=== PATIENT | female | born 1995 | race American Indian/Alaskan Native ===

== ENCOUNTER 2017-09-07 15:43 | Emergency (ER) | payer MEDICAID ==
[2017-09-07 16:51] LABS: Bilirubin,Urine NEG (Negative); Blood,Urine NEG (Negative); Color,Urine Yellow (Yellow); Mucus,Urine 3+ /HPF
[2017-09-07 16:57] LABS: HCG Qualitative,Urine Negative (Negative)
[2017-09-07 20:55] LABS: Basophils % (Auto) 0.5 % (0.0-1.8); Eosinophils # (Auto) 0.1 K/mm3 (0.0-0.4); Eosinophils % (Auto) 0.9 % (0.0-4.3); Hematocrit 37.4 % (30.3-42.9); Hemoglobin 12.3 gm/dl (10.1-14.3); Lymphocytes # (Auto) 2.6 K/mm3 (1.2-5.4); Lymphocytes % (Auto) 43.5 % (13.4-35.0); Mean Corpuscular HGB Conc 33 % (30-34); Mean Corpuscular Hemoglobin 26 pg (28-32); Mean Corpuscular Volume 80 fl (79-97); Monocytes # (Auto) 0.5 K/mm3 (0.0-0.8); Platelet Count 310 K/mm3 (140-440); Red Blood Count 4.68 M/mm3 (3.65-5.03); Red Cell Distribution Width 14.3 % (13.2-15.2)
[2017-09-07 21:16] LABS: Alanine Aminotransferase 11 units/L (7-56); Albumin 4.1 g/dL (3.9-5); BUN/Creatinine Ratio 25; Blood Urea Nitrogen 15 mg/dL (7-17); Calcium 9.6 mg/dL (8.4-10.2); Hemolysis Index 8
[2017-09-07 21:31] VITALS: BP 105/55
[2017-09-07] MEDS ORDERED: ZITHROMAX PO ONE (22:00)
[2017-09-07] MEDS ORDERED: XYLOCAINE 1% MPF 5 mL INFILTRATI ONE (22:01)
[2017-09-07] MEDS ORDERED: ROCEPHIN IM ONE (22:01)
[2017-09-07] MEDS ORDERED: FLAGYL PO ONE (22:01)
--- NOTE | 2017-09-07 23:29 | Emergency Department Report ---
HPI - General Chief Complaint: Abdominal Pain Time Seen by Provider: 09/07/17 21:25 - HPI HPI: The patient is 22-year-old female who presents for evaluation of abdominal pain and vaginal discharge. The patient was one week of lower cramping abdominal pain, moderate severity, exacerbated with position changes, and associated with dysuria, vaginal itching, and a thick white vaginal discharge. The patient denies fever, chills, night sweats, diarrhea, blood in the stool, dark tarry stool, flank pain, inability to pass flatus. ED Past Medical Hx - Past Medical History Previous Medical History?: No - Surgical History Past Surgical History?: No - Social History Smoking Status: Never Smoker Substance Use Type: Marijuana - Medications Home Medications: Home Medications Medication Instructions Recorded Confirmed Last Taken Type Acetaminophen/Codeine [Tylenol #3] 1 tab PO Q6H PRN #10 tab 09/07/17 Unknown Rx Fluconazole [Diflucan TAB] 150 mg PO ONCE #1 tablet 09/07/17 Unknown Rx Ibuprofen [Motrin] 800 mg PO Q8HR PRN #15 tablet 09/07/17 Unknown Rx Miconazole/Cleanser 17 On Wipe 1 each VG QDAY #1 kit 09/07/17 Unknown Rx [Monistat 7 Combination Pack] metroNIDAZOLE [Flagyl] 500 mg PO Q12HR #14 tab 09/07/17 Unknown Rx ED Review of Systems ROS: Stated complaint: SIDE/ABD PAIN Other details as noted in HPI Constitutional: denies: fever ENT: denies: throat or neck pain Respiratory: denies: cough, shortness of breath Cardiovascular: denies: chest pain Endocrine: denies unexplained weight loss or gain Gastrointestinal: reports abdominal pain, nausea Genitourinary: reports vaginal dischasrge and dysuria Musculoskeletal: denies: leg swelling Skin: denies: rash Neurological: denies: headache Hematological/Lymphatic: denies: easy bleeding or easy bruising Psych: denies sadness or hopelessness Physical Exam - Physical Exam Vital Signs: Vital Signs 09/07/17 09/07/17 09/07/17 15:57 21:30 21:31 Temperature 98.3 F Pulse Rate 60 54 L Respiratory 16 16 16 Rate Blood Pressure 118/77 Blood Pressure 105/55 [Left] O2 Sat by Pulse 97 Oximetry Physical Exam: General: well-nourished, well-developed, no acute distress Head: Normocephalic, atraumatic Eyes: normal sclera ENT: Mucous membranes are pink and moist Neck: trachea midline, neck supple, No neck stiffness, no cervical adenopathy Respiratory: Breath sounds equal bilaterally, no wheezing, rales, or rhonchi Cardio: S1 and S2 present, no murmurs, rubs, gallops, capillary refill is brisk Abdomen: Normoactive bowel sounds, soft abdomen, she Attends palpation present, no rigidity, no guarding or rebound tenderness Chest WALL/Back: No tenderness to palpation of the chest wall, no CVA tenderness with percussion Musc: No pitting edema Skin: No rash Neuro: no facial drooping, normal speech Psych: Normal affect ED Course Vital Signs 09/07/17 09/07/17 09/07/17 15:57 21:30 21:31 Temperature 98.3 F Pulse Rate 60 54 L Respiratory 16 16 16 Rate Blood Pressure 118/77 Blood Pressure 105/55 [Left] O2 Sat by Pulse 97 Oximetry ED Medical Decision Making - Lab Data Result diagrams: 09/07/17 20:43 09/07/17 20:43 - Medical Decision Making The patient was seen and examined by myself. The patient is placed on a teletypesetter monitor and continuous pulse ox. On initial evaluation, the patient was found to be in no distress. Evaluation orders are placed. Evaluation findings are suggestive of acute vaginitis. The patient admitted to a protective sexual intercourse and she is given azithromycin, Flagyl, and IM Rocephin. The patient refused pelvic exam and vaginal cultures. Lab results are reassuring including normal WBC, electrolytes, renal function, urinalysis, and negative preg test. The patient was reevaluated and reported that their symptoms were markedly improved. The patient is stable for discharge with outpatient follow- up. The patient is given follow-up and return instructions. The patient expressed understanding and agreed with the plan. The patient is discharged in stable condition. Critical care attestation.: If time is entered above; I have spent that time in minutes in the direct care of this critically ill patient, excluding procedure time. ED Disposition Clinical Impression: Acute suprapubic pain Vaginitis Qualifiers: Chronicity: acute Qualified Code(s): N76.0 - Acute vaginitis Disposition: TO HOME OR SELFCARE Is pt being admited?: No Does the pt Need Aspirin: No Condition: Stable Instructions: Abdominal Pain (ED), Vaginitis (ED), Bacterial Vaginosis (ED), Vulvovaginal Candidiasis (ED) Referrals: [facility] [Outside] - 3-5 Days FAYE MAY MD [Staff Physician] - 3-5 Days Time of Disposition: 23:29
== END 2017-09-07 23:40 | disposition home or self-care (01) ==
LOC: ED 15:43
DX: R10.30 Lower abdominal pain, unspecified (principal); N76.0 Acute vaginitis; F12.10 Cannabis abuse, uncomplicated
CPT/HCPCS: 36415; 80053; 81001; 81025; 85025; 96372; 99284; J0696